=== PATIENT | male | born 1990 | race Caucasian/White ===

== ENCOUNTER 2017-02-24 13:29 | Emergency (ER) | payer SELFPAY ==
[2017-02-24] MEDS ORDERED: LORAZEPAM 1 MG TABLET PO ONE (14:10)
--- NOTE | 2017-02-24 14:11 | ER Document Report ---
ED Medical Screen (RME) - General Chief Complaint: Psych Problem Stated Complaint: PSYCH EVAL Time Seen by Provider: 02/24/17 14:09 Notes: Patient states he was homeless and living in his car in [place]. He states he is addicted to alcohol and heroin. He states he drove home last night to obtain help. He arrived at his family's house as mom brought him here to the hospital for further care. He states he is having thoughts of wanting to hurt other people and hurt himself. - Related Data Allergies/Adverse Reactions: gluten Allergy (Verified 02/24/17 14:04) Home Medications: Current Home Medications No Home Medications 02/24/17 [History] Physical Exam - Vital signs Vitals: Temp Pulse Resp BP Pulse Ox 99.2 F 91 18 136/65 H 100 02/24/17 13:39 02/24/17 13:39 02/24/17 13:39 02/24/17 13:39 02/24/17 13:39 Course - Vital Signs Vital signs: Temp Pulse Resp BP Pulse Ox 99.2 F 91 18 136/65 H 100 02/24/17 13:39 02/24/17 13:39 02/24/17 13:39 02/24/17 13:39 02/24/17 13:39
[2017-02-24 15:24] LABS: APPEARANCE,URINE CLEAR; BILIRUBIN,URINE NEGATIVE (NEGATIVE); COLOR,URINE YELLOW; GLUCOSE, URINE NEGATIVE (NEGATIVE); KETONES,URINE NEGATIVE (NEGATIVE); LEUKOCYTE ESTERASE,URINE NEGATIVE (NEGATIVE); NITRITE,URINE NEGATIVE (NEGATIVE); PROTEIN,URINE NEGATIVE (NEGATIVE)
[2017-02-24 15:40] LABS: URINE AMPHETAMINES SCREEN NEGATIVE; URINE BARBITURATES SCREEN NEGATIVE; URINE BENZODIAZEPINES SCREEN NEGATIVE; URINE COCAINE SCREEN NEGATIVE; URINE MARIJUANA (THC) SCREEN NEGATIVE; URINE METHADONE SCREEN NEGATIVE; URINE PHENCYCLIDINE SCREEN NEGATIVE
--- NOTE | 2017-02-24 15:44 | ER Document Report ---
ED Psych Disorder / Suicide <FELIX SHEIKH - Last Filed: 02/25/17 11:06> <RAHUL GARCIA - Last Filed: 02/25/17 11:36> - General Chief Complaint: Psych Problem Stated Complaint: PSYCH EVAL Time Seen by Provider: 02/24/17 14:09 Notes: Patient says that he is homeless and was living in [place] and drove to family here in [place] because he is wanting to detox from heroin and alcohol. His last heroin was about midnight and his last alcohol was last night. He is here with his mother. Says he is feeling anxious and nervous and feeling goosebumps and shaking. Has had some nausea and decreased appetite but has not vomited. Not having any difficulty breathing or shortness of breath. Not running any fevers. Patient has a history of anxiety and depression and PTSD. He is not on any current medications. Also has celiac's disease. (RAHUL GARCIA) - Related Data Allergies/Adverse Reactions: gluten Allergy (Verified 02/24/17 14:04) Past Medical History - Social History Smoking Status: Current Every Day Smoker Frequency of alcohol use: Heavy Drug Abuse: Heroin, Marijuana Family History: Reviewed & Not Pertinent Patient has suicidal ideation: Yes Patient has homicidal ideation: Yes - Past Medical History Cardiac Medical History: Denies: Hx Coronary Artery Disease Psychiatric Medical History: Reports: Hx Anxiety, Hx Depression, Hx Post Traumatic Stress Disorder, Other - Substance abuse (heroin and alcohol) <RAHUL GARCIA - Last Filed: 02/25/17 11:36> Review of Systems <FELIX SHEIKH - Last Filed: 02/25/17 11:06> <RAHUL GARCIA - Last Filed: 02/25/17 11:36> - Review of Systems Notes: REVIEW OF SYSTEMS: CONSTITUTIONAL : Denies fever. Says he has the shakes. EENT: Denies eye, ear, nose or mouth or throat pain or other symptoms. CARDIOVASCULAR: Denies chest pain. RESPIRATORY: Denies cough, chest congestion, or shortness of breath. GASTROINTESTINAL: Says he has some abdominal pain with some nausea, but no vomiting, or diarrhea. GENITOURINARY: Denies difficulty or painful urinating, urinary frequency, blood in urine. MUSCULOSKELETAL: Denies back or neck pain. Denies joint pain or swelling. SKIN: Denies rash or skin lesions. Says his skin feels like is crawling. NEUROLOGICAL: Denies LOC or altered mental status. Denies headache. Denies sensory loss or motor deficits. ALL OTHER SYSTEMS REVIEWED AND NEGATIVE. (RAHUL GARCIA) Physical Exam <FELIX SHEIKH - Last Filed: 02/25/17 11:06> - Vital signs Interpretation: Normal <RAHUL GARCIA - Last Filed: 02/25/17 11:36> - Vital signs Vitals: Temp Pulse Resp BP Pulse Ox 99.2 F 91 18 136/65 H 100 02/24/17 13:39 02/24/17 13:39 02/24/17 13:39 02/24/17 13:39 02/24/17 13:39 - Notes Notes: PHYSICAL EXAMINATION: GENERAL: Well-appearing, in no acute distress. Vital signs are all essentially normal. HEAD: Atraumatic, normocephalic. EYES: Pupils equal round and reactive to light, extraocular movements intact. ENT: oropharynx clear without exudates. Moist mucous membranes. NECK: Normal range of motion, supple. LUNGS: Breath sounds clear and equal bilaterally. HEART: Regular rate and rhythm without murmurs. Heart rate about 60. EKG done here in the ER shows a heart rate of 65. ABDOMEN: Soft, nontender. No guarding or rebound. BACK: No tenderness throughout entire back. EXTREMITIES: Normal range of motion without pain. NEUROLOGICAL: Normal speech, normal gait. Normal sensory, motor, and reflex exams. Awake, alert, and oriented x3. Cranial nerves normal. PSYCH: Normal mood, normal affect. Anxious. SKIN: Warm, dry, no rashes. (RAHUL GARCIA) Course - Laboratory Result Diagrams: 02/24/17 15:49 02/24/17 15:49 <FELIX SHEIKH - Last Filed: 02/25/17 11:06> - Laboratory Result Diagrams: 02/24/17 15:49 02/24/17 15:49 <RAHUL GARCIA - Last Filed: 02/25/17 11:36> - Re-evaluation Re-evalutation: 02/24/17 18:46 Patient is having some shaking. Says he feels like his skin is crawling. Feels nervous and shaky. Has not vomited. Heart rate is 72. His drug screen was positive for opiates, but negative for alcohol. Patient is now 24 hours since his last alcohol and his exam is essentially benign except for subjective shaking. He is approaching 24 hours without opiates and likewise. His heart rate has not shown any tendency to get elevated and I do not think he is having withdrawal at this time. Will prescribe Vistaril as needed. (RAHUL GARCIA) - Vital Signs Vital signs: Temp Pulse Resp BP Pulse Ox 98.3 F 99 16 105/64 97 02/25/17 05:57 02/25/17 09:49 02/25/17 09:49 02/25/17 09:49 02/25/17 09:49 - Laboratory Laboratory results interpreted by me: 02/24/17 02/24/17 02/24/17 15:03 15:49 15:49 Seg Neutrophils % 82.9 H Lymphocytes % 9.4 L Alkaline Phosphatase 136 H Urine Urobilinogen 4.0 H Salicylates < 1.0 L Acetaminophen < 10 L Discharge <FELIX SHEIKH - Last Filed: 02/25/17 11:06> <RAHUL GARCIA - Last Filed: 02/25/17 11:36> - Discharge Clinical Impression: Substance abuse, Alcohol abuse, Heroin abuse Condition: Stable Disposition: HOME, SELF-CARE Additional Instructions: CHRONIC ALCOHOLISM and ALCOHOL ABUSE: Your evaluation reveals evidence of chronic alcoholism, an addiction to alcohol. The tendency to alcoholism may be inherited. Chronic use of alcohol weakens muscles, causes fatty deposits in the liver , damages the stomach, makes you more prone to infections, and can cause defects in unborn children. In the long run, brain atrophy and cirrhosis of the liver result. You are also at greater risk for certain types of cancer, such as cancer of the mouth, throat, stomach, and liver. Counselling services are available to help you. In-hospital treatment programs often help. Support groups such as Alcoholics Anonymous can be very useful in beating this addiction. Your physician can make a referral for you. As alcoholics often are prone to other addictions, you should discuss your use of any other medications with the doctor. ALCOHOL WITHDRAWAL: Your symptoms are caused by alcohol withdrawal. After a period of frequent drinking, the brain and body are changed by the alcohol. When you quit or reduce your drinking, the nervous system becomes unstable. Withdrawal symptoms can start a few hours after your last drink, but sometimes don't begin until a couple of days later. Symptoms can include shakiness, sweating, insomnia, nausea , vomiting, fearfulness, hallucinations, and seizures. In addition to the acute effects of alcohol withdrawal, we often have to deal with the medical effects of alcoholism. These problems often include dehydration, stomach irritation, intestinal bleeding, low blood sugar, liver disease, and pancreas inflammation. Treatment for alcohol withdrawal includes mild sedatives, vitamins, and fluids. You need to be with someone who can help if symptoms become severe. Many patients can withdraw at home. Admission to the hospital or a detox facility may be necessary if withdrawal symptoms are severe and uncontrollable. Abstaining from alcohol is the only effective long-term treatment. If you start drinking again, you will not be able to control yourself after the first drink. Treatment programs are available. In addition, many alcoholics benefit from Alcoholics Anonymous or other support groups available through your counselor or latter day oxygen system tester. AL-ANON and ALA-TEEN are support groups for friends and family members of an alcoholic. Go to the emergency room if you develop persistent vomiting, severe abdominal pain, fever, shortness of breath, hallucinations, uncontrollable tremors, or seizures. NARCOTIC / OPIOD ABUSE: Narcotics and opiods are pain-relieving drugs that are often abused. They are addicting. Narcotics cause euphoria, but it often takes increasing amounts to "feel good" and avoid withdrawal symptoms. Overdose of narcotics causes small pupils, coma, and decreased breathing. It's a common cause of . Purity of street narcotics is unpredictable. Injection of narcotics is risky for abscesses, endocarditis (heart infection), pneumonia, and AIDS. Withdrawal from narcotics causes goose bumps, watery mouth, sweating, nasal congestion, muscle aches, abdominal cramps, vomiting, and diarrhea. There 's often restlessness and confusion. Treatment programs are available, but you must make the decision to quit. Medication (such as clonidine) can be prescribed to control the symptoms of withdrawal. NARCOTIC / OPIOD ABUSE: Narcotics and opiods are pain-relieving drugs that are often abused. They are addicting. Narcotics cause euphoria, but it often takes increasing amounts to "feel good" and avoid withdrawal symptoms. Overdose of narcotics causes small pupils, coma, and decreased breathing. It's a common cause of . Purity of street narcotics is unpredictable. Injection of narcotics is risky for abscesses, endocarditis (heart infection), pneumonia, and AIDS. Withdrawal from narcotics causes goose bumps, watery mouth, sweating, nasal congestion, muscle aches, abdominal cramps, vomiting, and diarrhea. There 's often restlessness and confusion. Treatment programs are available, but you must make the decision to quit. Medication (such as clonidine) can be prescribed to control the symptoms of withdrawal. FOLLOW-UP CARE: You have been referred to [facility] for voluntary detoxification/rehabilitation related to alcohol and heroin. If you have been referred to a physician for follow-up care, call the physicians office for an appointment as you were instructed or within the next two days. If you experience worsening or a significant change in your symptoms, notify the physician immediately or return to the Emergency Department at any time for re-evaluation. Prescriptions: Hydroxyzine Pamoate [Vistaril 50 mg Capsule] 50 mg PO Q6HP PRN #12 capsule PRN Reason: Referrals: [facility] Crisis Team [Provider Group] - Follow up as needed
[2017-02-24 16:25] LABS: ABSOLUTE EOSINOPHILS # (AUTO) 0.1 10^3/uL (0.0-0.6); ABSOLUTE LYMPHOCYTES (AUTO) 0.8 10^3/uL (0.5-4.7); ABSOLUTE MONOCYTES (AUTO) 0.6 10^3/uL (0.1-1.4); ABSOLUTE NEUT (AUTO) 7.3 10^3/uL (1.7-8.2); BASOPHILS % (AUTO) 0.2 % (0-2); EOSINOPHILS % (AUTO) 0.6 % (0-6); HEMATOCRIT 38.2 % (37.9-51.0); HEMOGLOBIN 13.6 g/dL (13.5-17.0); LYMPHOCYTES % (AUTO) 9.4 % (13-45); MEAN CORPUSCULAR HEMOGLOBIN 29.3 pg (27.0-33.4); MEAN CORPUSCULAR HGB CONC 35.6 g/dL (32.0-36.0); MEAN CORPUSCULAR VOLUME 82 fl (80-97); MONOCYTES % (AUTO) 6.9 % (3-13); PLATELET COUNT 190 10^3/uL (150-450); RED BLOOD COUNT 4.63 10^6/uL (4.35-5.55); RED CELL DISTRIBUTION WIDTH 13.6 % (11.5-14.0); SEGMENTED NEUTROPHILS % (AUTO) 82.9 % (42-78); TOTAL CELLS COUNTED % (AUTO) 100 %; WHITE BLOOD COUNT 8.8 10^3/uL (4.0-10.5)
[2017-02-24 16:53] LABS: ALANINE AMINOTRANSFERASE 62 U/L (21-72); ALBUMIN 4.5 g/dL (3.5-5.0); ALKALINE PHOSPHATASE 136 U/L (38-126); ANION GAP 11 (5-19); ASPARTATE AMINO TRANSFERASE 48 U/L (17-59); BILIRUBIN,DIRECT 0.3 mg/dL (0.0-0.4); BILIRUBIN,TOTAL 0.7 mg/dL (0.2-1.3); BLOOD UREA NITROGEN 11 mg/dL (7-20); CALCIUM 9.8 mg/dL (8.4-10.2); CARBON DIOXIDE 29 mmol/L (22-30); CHLORIDE 103 mmol/L (98-107); GLUCOSE 98 mg/dL (75-110); POTASSIUM 4.4 mmol/L (3.6-5.0); SODIUM 143.3 mmol/L (137-145); TOTAL PROTEIN 7.6 g/dL (6.3-8.2)
[2017-02-24 17:01] LABS: ACETAMINOPHEN < 10 ug/mL (10-30); ALCOHOL < 10 mg/dL (NONE DETECTED); SALICYLATE < 1.0 mg/dL (2.0-20.0)
[2017-02-24] MEDS ORDERED: ONDANSETRON 4 MG TAB.RAPDIS PO PRN (18:12)
[2017-02-24] MEDS: CLONIDINE HCL 0.1 MG TABLET PO PRN ×2 (18:25→21:12)
--- NOTE | 2017-02-24 19:45 | EKG REPORT ---
SEVERITY:- OTHERWISE NORMAL ECG - SINUS RHYTHM BORDERLINE RIGHT AXIS DEVIATION : Confirmed by: Patrick Velez MD 24-Feb-2017 19:44:43
[2017-02-24] MEDS: HYDROXYZINE PAMOATE 50 MG CAPSULE PO PRN (21:13)
[2017-02-25] MEDS: HYDROXYZINE PAMOATE 50 MG CAPSULE PO PRN (09:02)
--- NOTE | 2017-02-25 10:41 | ER Document Report ---
Doctor's Note Notes: 02/25/17 10:40 Rounds: Chart reviewed. Attempted to interview patient, but he sleeping very soundly and does not awaken to voice. He did get a Vistaril 50 mg at 9:00 this morning. Patient's vital signs are all normal. Patient appears to be having one of the most benign withdrawal syndromes I have ever witnessed! Patient appears to be medically stable for transfer or discharge. Mitchell Aquino MD
[2017-02-25] MEDS: CLONIDINE HCL 0.1 MG TABLET PO PRN (12:27)
[2017-02-25 12:37] VITALS: BP 117/71
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
--- NOTE | 2017-02-25 15:56 | PSYCHOLOGICAL NOTE ---
Psych Note - Psych Note Psych Note: Patient was re-evaluated. Patient reported he was "doing ok." He stated he was not shaking as bad as he had the day before. Provider discussed following up with [facility] for detoxification from substances and ongoing substance use treatment. Nurse of patient indicated he had slept through the night and did not have any aggressive verbal outbursts throughout the night. Patient agreed to follow up with [facility] for detoxification treatment and ongoing treatment. Mother was in agreement to provide transportation and aware of plan of care. 1. 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 291.9 (F10.99) Unspecified Alcohol Use Disorder, by history per patient 5. 309.81 (F43.1) Post Traumatic Stress Disorder, by history per patient 4. R/O Bipolar Disorder Impression/Plan: Patient is psychiatrically clear for discharge. Patient denied suicidal/homicidal ideation, intent or plan. Patient is interested in detox and ongoing treatment of substance use. Patient is referred to [facility] and provided with other resources for continued services. Consulted with Dr. Santillan in care of this patient. ED physician in agreement with recommendation and disposition.
== END 2017-02-25 12:30 | disposition home or self-care (01) ==
LOC: ER 13:29
DX: F11.10 Opioid abuse, uncomplicated (principal); F10.10 Alcohol abuse, uncomplicated; F12.10 Cannabis abuse, uncomplicated; F41.9 Anxiety disorder, unspecified; K90.0 Celiac disease; R11.0 Nausea; R63.0 Anorexia; R10.9 Unspecified abdominal pain; F17.200 Nicotine dependence, unspecified, uncomplicated; Z59.0 Homelessness
CPT/HCPCS: 93005; 99285; 36415; 80307 ×4; 85025; 80053; 81001; 93010; S0119

== ENCOUNTER 2018-01-27 14:10 | Emergency (ER) | payer OTHER ==
[2018-01-27 14:16] VITALS: BP 143/52
--- NOTE | 2018-01-27 14:39 | ER Document Report ---
ED Allergic Reaction - General Chief Complaint: Insect Bite Stated Complaint: POSSIBLE INSECT BITE Time Seen by Provider: 01/27/18 14:28 Mode of Arrival: Ambulatory Information source: Patient Notes: Patient is a 27-year-old male comes emergency room complaining of right forearm pain and swelling. 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 [place] and he felt something on his hand and he brushed it off and the next few minutes he felt something bite him he threw his shirt down and thinks he saw a spider sclerae white. When he relays next is that within the next 20 minutes after that happened his whole forearm swelled up and he took a picture of it did show that it got much bigger than his baseline became very red and slightly discolored. He wrapped it up and he came to ER. By the time he got to ER the swelling had gone down some in the discoloration is gone away the warmth and also dissipated. TRAVEL OUTSIDE OF THE [place] IN LAST 30 DAYS: No - HPI Onset: Just prior to arrival Onset/Duration: Sudden, Better Quality of pain: Achy, Sharp, Throbbing Severity: Severe Pain Level: 5 Identified cause: Possibly Skin rash / itching: Extremities, "Redness" Similar symptoms previously: No Recently seen / treated by doctor: No - Related Data Allergies/Adverse Reactions: gluten Allergy (Verified 01/27/18 14:11) Past Medical History - General Information source: Patient - Social History Smoking Status: Current Every Day Smoker Cigarette use (# per day): Yes Chew tobacco use (# tins/day): No Smoking Education Provided: Yes Frequency of alcohol use: None Drug Abuse: None Lives with: Family Family History: Reviewed & Not Pertinent - Past Medical History Cardiac Medical History: Denies: Hx Coronary Artery Disease Renal/ Medical History: Denies: Hx Peritoneal Dialysis Psychiatric Medical History: Reports: Hx Anxiety, Hx Depression, Hx Post Traumatic Stress Disorder Review of Systems - Review of Systems Constitutional: No symptoms reported EENT: No symptoms reported Cardiovascular: No symptoms reported Respiratory: No symptoms reported Gastrointestinal: No symptoms reported Genitourinary: No symptoms reported Male Genitourinary: No symptoms reported Musculoskeletal: No symptoms reported Skin: See HPI, Change in color, Rash Hematologic/Lymphatic: No symptoms reported Neurological/Psychological: No symptoms reported Physical Exam - Vital signs Vitals: Temp Pulse Resp BP Pulse Ox 98.6 F 69 18 143/52 H 95 01/27/18 14:13 01/27/18 14:13 01/27/18 14:13 01/27/18 14:13 01/27/18 14:13 Interpretation: Hypertensive - Notes Notes: PHYSICAL EXAMINATION: GENERAL: Well-appearing, well-nourished and in no acute distress. HEAD: Atraumatic, normocephalic. EYES: Pupils equal round and reactive to light, extraocular movements intact, sclera anicteric, conjunctiva are normal. ENT: Nares patent, oropharynx clear without exudates. Moist mucous membranes. NECK: Normal range of motion, supple without lymphadenopathy LUNGS: Breath sounds clear to auscultation bilaterally and equal. No wheezes rales or rhonchi. HEART: Regular rate and rhythm without murmur checking when taking Musculoskeletal: Physical exam patient's arm shows it to be relatively back to normal. It is still slightly bigger than the left some mild tenderness to palpation or sensitivity to palpation. There does not appear to be an entrance wound that we can see although patient has some mild excoriations around the forearm that he most likely did when the original incident occurred and he was scratching at it. So it could be involved in anywhere. Patient has good skin tone he has good senior center director strength there is no abnormalities presently. NEUROLOGICAL: Normal speech, normal gait. Normal sensory, motor exams PSYCH: Normal mood, normal affect. SKIN: Warm, Dry, normal turgor, no rashes or lesions noted. Course - Re-evaluation Re-evalutation: 01/27/18 21:15 Patient given that he has pictures of the arm previously are prior to 30 minutes prior to arrival and the arm is definitely bigger than the left and much more red than I have to assume that patient had a quick and localized allergic reaction and that it has corrected itself. Given that said patient is going back to work and I am going to place him on a little mild steroid taper and some Zantac for coverage in case she comes in contact with what ever it aggravated him previously. I have informed him to return to ER if he should have such an incident or have any other concerns. - Vital Signs Vital signs: Temp Pulse Resp BP Pulse Ox 98.6 F 69 18 143/52 H 95 01/27/18 14:13 01/27/18 14:13 01/27/18 14:13 01/27/18 14:13 01/27/18 14:13 Discharge - Discharge Clinical Impression: Allergic reaction Qualifiers: Encounter type: initial encounter Qualified Code(s): T78.40XA - Allergy, unspecified, initial encounter Disposition: HOME, SELF-CARE Instructions: Acute Allergic Reaction ([facility]) Additional Instructions: As we discussed I cannot stress enough that if you come in contact with the offending agent again without any coverage of the steroids reaction could be worse. You can take Benadryl for the itch and we will put you on the stomach pill ranitidine as I discussed with you already. Take the steroids as directed return to ER if you should have any concerns or problems or increasing symptoms. Prescriptions: Prednisone 10 mg PO ASDIR PRN 4 Days #1 tab.ds.pk PRN Reason: Ranitidine HCl 150 mg PO BID #30 tablet Forms: Elevated Blood Pressure, Return to Work Referrals: [facility] [NO LOCAL MD] - Follow up as needed
== END 2018-01-27 14:40 | disposition home or self-care (01) ==
LOC: ER 14:10
DX: T78.40XA Allergy, unspecified, initial encounter (principal); X58.XXXA Exposure to other specified factors, initial encounter; F17.210 Nicotine dependence, cigarettes, uncomplicated
CPT/HCPCS: 99281